=== PATIENT | female | born 1990 | race African-American/Black ===

== ENCOUNTER 2019-04-23 11:24 | Emergency (ER) | payer BC, SELFPAY ==
[2019-04-23 11:32] VITALS: BP 135/86; PULSE 106; TEMP 36.5; O2SAT 100
--- NOTE | 2019-04-23 11:40 | W.ED.GENAD ---
Discharge Plan Disposition Patient Disposition: HOME Condition: Good Discharge Details Chief Complaint: Urinary Clinical Impression: Vaginal discharge, Candidiasis of vagina, Bacterial vaginosis Primary Care Provider: None,None ED Provider: Abhi Pires Home Meds and New Rx's Prescriptions: New clotrimazole 2 % cream 1 appful VG QHS 3 Days Qty: 21 RF: 0 metronidazole [Flagyl] 500 mg tablet 500 mg PO BID 7 Days Qty: 14 RF: 0 Discharge Instructions Instructions: Vulvovaginal Candidiasis (ED) Additional Instructions: You have bacterial vaginosis and a yeast infection. Please take the Flagyl as directed. Do not take any alcohol with this. Please apply the cream to the vaginal region nightly for 3 nights. You will be contacted within 5 days if your gonorrhea and chlamydia come back positive. Otherwise if you receive no call were negative. You can always contact us if you would like the results at any time though. If you notice any worsening of your symptoms, or any new symptoms such as vomiting, diarrhea, fever, chills, shortness of breath, chest pain, numbness, weakness, or fainting , please return immediately to the emergency department for reevaluation. Please follow up with your primary care provider as soon as possible for reassessment and reevaluation. As always, it was a pleasure participating in your medical care today. Medical Decision Making This is a pleasant 28-year-old -[place] female who presents with vaginal discharge for the last 2 days. It is green in color, notably increased. She has associated dysuria. She denies flank tenderness or CVA tenderness, she denies fever chills. Exam demonstrates a nontender pelvic region, no chandelier sign, no clinical evidence of severe PID. She has notable cottage tease discharge which is clinically consistent with a yeast infection. Differential is clinically inconsistent with tubo-ovarian abscess. Pending vaginal past screens at this time. 12:47 PM Vaginal Pap screen shows no evidence of use confirmatory Hugo. We will give a dose of 150 mg fluconazole here. Patient does not want doxycycline or Rocephin or azithromycin at this time as she denies any sexual activity whatsoever and the likelihood for gonorrhea chlamydia is extremely low. We will respect this. This time will discharge home recommend close follow-up with her PCP. Discussed red flags which to return. Signs and symptoms are clinically consistent with vaginal candidiasis. I have extensively reviewed the treatment plan and discharge instructions with the patient. I have addressed all patient concerns at this time. The patient was made aware of what symptoms to monitor for that would warrant a return to the emergency department. Discussed the plan with the patient, they demonstrate verbal understanding and agreement with our assessment and plan at this time. Additionally her vaginal Pap screen did come up for bacterial vaginosis as well. We will give Flagyl here, as well as a prescription for home use. We discussed the importance of avoiding alcohol. HPI General Date/Time Provider Initiated Documentation: 04/23/19 11:31. HPI Narrative: This is a 28-year-old -[place] female with no significant past medical history who presents today for vaginal discharge and dysuria. Patient states that for the last 2 days she has had green vaginal discharge and burning when she urinates. She denies flank or CVA tenderness. She denies fever or chills. She denies any intercourse for greater than 9 months. She denies any sexual activity in the genital region by another person greater than 9 months. She denies any history of STDs in the past. She has no other complaints at this time. She did take 2 doses of Bactrim that she had leftover at home, but this did not change her symptoms. No other complaints at this time. No other modifying factors. Related Data Home Medications Medication Instructions Recorded Confirmed clotrimazole 1 appful VG QHS 3 Days #21 gm 04/23/19 metronidazole [Flagyl] 500 mg PO BID 7 Days #14 tab 04/23/19 Previous Rx's Medication Instructions Recorded clotrimazole 1 appful VG QHS 3 Days #21 gm 04/23/19 metronidazole [Flagyl] 500 mg PO BID 7 Days #14 tab 04/23/19 General Stated Complaint: Urinary REECE: 3 Review of Systems All systems reviewed & are unremarkable except as noted in HPI and below PFSH Social History Smoking/Tobacco Use Status: Current every day Tobacco Type: cigarettes Alcohol Intake: current Alcohol Intake frequency: a few times a week Drug use: Never Substance use type: does not use Do you feel safe at home: Yes Do you feel safe in your relationship?: Yes Exam Narrative Exam Narrative: 1.Const: Well-nourished, Well-developed, appearing stated age 2.Eyes: PERRL, no conjunctival injection, and symmetrical lids. 3.ENT: Atraumatic external nose and ears. Moist MM. Neck: Symmetric, trachea midline, No thyromegaly. 4.CVS: +S1/S2, No murmurs or gallops. Peripheral pulses 2+ and equal in all extremities. Brisk capillary refill in all extremities. 5.RESP: Unlabored respiratory effort. Clear to auscultation bilaterally. No wheezes rales or rhonchi 6.GI: Soft, Nontender/Nondistended, No hepatosplenomegaly. No guarding or rebound. Pelvic exam demonstrated no pelvic tenderness on palpation. No flank or CVA tenderness. Pelvic exam was performed with female nurse at bedside, negative chandelier sign, notable cottage cheeselike discharge that was green in color. No petechiae or erythema on the cervix. No cervical motion tenderness. Bimanual exam demonstrated no significant tenderness. 7.MSK: Normocephalic/Atraumatic, Extremities w/o deformity or ttp No cyanosis or clubbing, Normal movement of all extremities 8.Skin: Warm, Dry. No rashes or lesions. 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 Sensation grossly intact, no focal neurologic deficits. 10.Psych: (AAO) x3. Appropriate mood and affect Course Vital Signs Vital signs: Vital Signs Temperature 36.5 C 04/23/19 11:32 Pulse 106 H 04/23/19 11:32 Blood Pressure 135/86 04/23/19 11:32 Pulse Oximetry 100 04/23/19 11:32 Temperature 36.5 C 04/23/19 11:32 Pulse 106 H 04/23/19 11:32 Blood Pressure 135/86 04/23/19 11:32 Blood Pressure Position Sitting 04/23/19 11:32 Pulse Oximetry 100 04/23/19 11:32 Oxygen Delivery Method Room Air 04/23/19 11:32 Oxygen Flow Rate 0 04/23/19 11:32 Pain Level 0 04/23/19 11:32 Lab/Test Results Lab/Test Results: 04/23/19 11:39 Vaginal Vaginitis Screen - Pending
[2019-04-23 11:55] LABS: Bilirubin Negative (Negative); Blood Negative (Negative); Clarity Clear (Clear); Glucose Negative (Negative); Ketones Negative (Negative); Leukocyte Esterase Small (Negative); Nitrite Negative (Negative); Specific Gravity >= 1.030 (1.005-1.025); Urobilinogen 0.2 EU/dL (Up TO 0.2); pH 6.5 (5-8)
[2019-04-23 12:22] LABS: Bacteria Moderate HPF (Negative); C & S Indicated? No/Sq. Contamination; Casts Negative LPF (Negative); Crystals Negative HPF (Negative); Epithelial Cells Many HPF (Negative); Mucus Moderate (Negative)
[2019-04-23] MEDS: metroNIDAZOLE 500 MG TAB PO (13:23)
[2019-04-23] MEDS: Fluconazole 150 MG TAB PO (13:24)
[2019-04-23 13:25] VITALS: BP 132/78; PULSE 78; RESP 19; TEMP 37.2; O2SAT 99
[2019-04-24 15:15] LABS: Chlamydia Result Negative (Negative)
[2019-04-28 11:32] LABS: GC Result Negative (Negative)
== END 2019-04-23 14:16 | disposition home or self-care (01) ==
LOC: ER 12:50
PROVIDERS: Emergency Provider Student in an Organized Health Care Education/Training Program
DX: N76.0 Acute vaginitis (principal); B96.89 Other specified bacterial agents as the cause of diseases classified elsewhere; B37.3 Candidiasis of vulva and vagina; R30.0 Dysuria
CPT/HCPCS: 81025; 87491; 87591; 99284; 81003; 81015; 87480; 87510; 87660; 99283

== ENCOUNTER 2019-12-24 03:37 | Outpatient (CLI) | payer BC, SELFPAY ==
--- NOTE | 2020-01-03 22:01 | PDOC.EEG_ITS ---
Neurology EEG EEG: [facility] Department of Neurology EEG REPORT Date of Recordin12/24/19 Interpreting Physician: Dr. Leonora Kelsey PCP/Referring Provider: Dr. Sarah Huff Reason for study: Ms. Ellison is a 29 year-old woman with a remote history of seizure x2 with 1 year history of visual and auditory hallucinations. Current Medications: None reported. METHODS: A 21 channel digitized electroencephalogram was performed in the [facility] Clinical Neurophysiology Laboratory. The 10/20 international system of electrode placement was used and bipolar and referential electrode montages were recorded. In addition to EEG the patient was monitored for EKG and lateral/vertical eye movements. Activation procedures of photic stimulation and hyperventilation were performed if applicable. Video was used during activation procedures and during events where applicable. The duration of the recording was 30 minutes. DESCRIPTION OF EEG: The patient was noted to be awake, drowsy, and asleep during the recording. During maximal wakefulness a 10-Hz posterior background rhythm was present which was well-modulated, symmetrical, reactive to eye opening, and of moderate voltage. With eye opening the background activity changed to a low voltage mixture of alpha, beta, and occasional theta range frequencies. Faster frequencies were present in the bilateral anterior head regions. There was a normal anterior-posterior voltage gradient. During drowsiness, there was attenuation of the posterior dominant background rhythm and vertex waves. Stage II sleep was present with symmetrical sleep spindles, K-complexes, and vertex waves. There was a single right occipital (O2), high-amplitude, spike-wave at 15:56:14. There were rare right occipital sharp-waves that were not clearly epileptic. Activating Procedures: Photic stimulation was performed which produced no posterior driving response. Hyperventilation was performed with moderate effort and produced no physiological slowing of the background. EKG: EKG revealed normal sinus rhythm. 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 Clinical correlation is advised. Leonora Kelsey MD
== END 2019-12-24 03:57 ==
PROVIDERS: Visit Provider Psychiatry & Neurology Psychiatry
DX: G40.909 Epilepsy, unspecified, not intractable, without status epilepticus (principal)
CPT/HCPCS: 95819

== ENCOUNTER 2019-12-25 04:43 | Outpatient (CLI) | payer BC, SELFPAY ==
[2019-12-25 12:04] LABS: Abs Immature Grans 0.01 10^3/uL (0.0-0.06); Absolute Basophil Count 0.04 10^3/uL (0.0-0.2); Absolute Eosinophil Count 0.23 10^3/uL (0.0-0.7); Absolute Lymphocyte Count 2.17 10^3/uL (1.2-3.4); Absolute Monocyte Count 0.54 10^3/uL (0.1-0.8); Absolute Neutrophil Count 4.57 10^3/uL (1.2-6.7); Basophils % 0.5; HCT 39.3 % (36.0-46.0); HGB 13.1 g/dL (11.2-15.7); Immature Grans % 0.1; Lymphocytes % 28.7; MCH 28.9 pg (27.0-33.0); MCHC 33.3 % (32.0-36.0); MCV 86.8 fL (80-95); MPV 9.8 fL (8.0-11.0); Monocytes % 7.1; Neutrophils % 60.6; Nucleated RBC 0 %; Platelet Count 336 10^3/uL (130-400); RBC 4.53 10^6/uL (3.93-5.22); RDW-SD 38.4 fL; WBC 7.56 10^3/uL (4.4-10.8)
[2019-12-25 14:14] LABS: ALT 90 U/L (14-59); AST 32 U/L (15-37); Albumin 4.1 g/dL (3.4-5.0); Alkaline Phosphatase 75 U/L (46-116); Anion Gap 11.1 mmol/L (3-11); BUN 11 mg/dL (7-18); Bilirubin, Total 0.6 mg/dL (0.2-1.0); CO2 23.9 mmol/L (21.0-32.0); CREATININE 0.74 mg/dL (0.55-1.02); Calcium 9.2 mg/dL (8.5-10.1); Calculated LDL 93 mg/dL (<100); Chloride 105 mmol/L (98-107); Cholesterol 140 mg/dL (<200); Glucose 83 mg/dL (74-106); HDL Cholesterol 36 mg/dL (40-60); Potassium 4.3 mmol/L (3.5-5.1); Sodium 140 mmol/L (136-145); TSH (W/Ref FT4) 0.72 uIU/mL (0.36-3.74); Total Protein 7.4 g/dL (6.4-8.2); Triglyceride 59 mg/dL (<150)
[2019-12-28 06:16] LABS: Vitamin D 25 Total 22.1 ng/ml (30-100)
== END 2019-12-25 05:03 ==
PROVIDERS: Visit Provider Psychiatry & Neurology Psychiatry
DX: F31.30 Bipolar disorder, current episode depressed, mild or moderate severity, unspecified (principal); Z79.899 Other long term (current) drug therapy
CPT/HCPCS: 36415; 80053; 80061; 82306; 84443; 85025

== ENCOUNTER 2020-01-05 03:04 | Emergency (ER) | payer BC, SELFPAY ==
[2020-01-05 03:08] VITALS: BP 134/90; PULSE 90; RESP 16; TEMP 36.4; O2SAT 98
--- NOTE | 2020-01-05 03:14 | ED.GENADUL_ITS ---
Discharge Plan Disposition Patient Disposition: HOME Condition: Good Discharge Details Chief Complaint: Abd Prob Clinical Impression: Constipation Primary Care Provider: None,None ED Provider: Abhi Pires Home Meds and New Rx's Prescriptions: New docusate sodium [Colace] 100 mg capsule 100 mg PO DAILY Qty: 30 RF: 0 No Action amoxicillin 500 mg Tablet 500 mg PO TID RF: 0 acetaminophen-codeine 300-30 mg Tablet 1 tab PO Q6H PRNRF: 0 ibuprofen 600 mg Tablet 600 mg PO Q6H PRNRF: 0 Discharge Instructions Instructions: Constipation (ED) Additional Instructions: At this time we are able to get a notable amount of stool out with the enemas. Please drink plenty fluids at home, had recommend 10 to 12 cups of water per day, take an [id number] Colace every day while you are on the Tylenol with codeine. Tylenol with codeine can cause significant constipation. Eat a diet high in fiber. If you notice any worsening of your symptoms, or any new symptoms such as vomiting, diarrhea, fever, chills, shortness of breath, chest p ain, numbness, weakness, or fainting , please return immediately to the emergency department for reevaluation. Please follow up with your primary care provider as soon as possible for reassessment and reevaluation. As always, it was a pleasure participating in your medical care today. Medical Decision Making 29-year-old female who presents today for evaluation of constipation. The patient states that 5 to 6 days ago she started taking Tylenol with codeine for toothache, in conjunction with amoxicillin based antibiotic and Motrin. Since then she has not had any bowel movements or leaking. She feels like there is a rock that she is trying to poop out. She did try taking an [id number]-lwa-txvwjwe laxative today but that did not help. Aside for cramp she denies any focal pain. She denies any blood or other complaints. No history of neutropenia or immune deficiency. No history of cancer. Physical exam demonstrates hard stool ball. Will attempt to break up the ball, and give an enema. Had a notably large bowel movement and complete expectoration of all the blood from her rectum. She feels much better. Recommend sitz bath's, continued fluid and Colace. Discussed red flags which to return. Patient feels well and would like to go home. I have extensively reviewed the treatment plan and discharge instructions with the patient. I have addressed all patient concerns at this time. The patient was made aware of what symptoms to monitor for that would warrant a return to the emergency department. Discussed the plan with the p atient, they demonstrate verbal understanding and agreement with our assessment and plan at this time. HPI General Date/Time Provider Initiated Documentation: 01/05/20 03:06 . HPI Narrative: 29-year-old female who presents today for evaluation of constipation. The patient states that 5 to 6 days ago she started taking Tylenol with codeine for toothache, in conjunction with amoxicillin based antibiotic and Motrin. Since then she has not had any bowel movements or leaking. She feels like there is a rock that she is trying to poop out. She did try taking an rqpa-pkw-dpxmxco laxative today but that did not help. Aside for cramp she denies any focal pain. She denies any blood or other complaints. No history of neutropenia or immune deficiency. No history of cancer. Related Data Home Medications Medication Instructions Recorded Confirmed acetaminophen-codeine 1 tab PO Q6H PRN 01/05/20 01/05/20 amoxicillin 500 mg PO TID 01/05/20 01/05/20 docusate sodium [Colace] 100 mg PO DAILY #30 cap 01/05/20 ibuprofen 600 mg PO Q6H PRN 01/05/20 01/05/20 Previous Rx's Medication Instructions Recorded docusate sodium [Colace] 100 mg PO DAILY #30 cap 01/05/20 Allergies Allergy/AdvReac Type Severity Reaction Status Date / Time No Known Allergies Allergy Unverified 01/05/20 03:15 General Stated Complaint: Abd Prob REECE: 3 Review of Systems All systems reviewed & are unremarkable except as noted in HPI and below PFSH Social History Smoking/Tobacco Use Status: Current every day Tobacco Type: cigarettes Alcohol Intake: current Alcohol Intake frequency: a few times a week Drug use: Never Substance use type: does not use Do you feel safe at home: Yes Do you feel safe in your relationship?: Yes Exam Narrative Exam Narrative: 1.Const: Well-nourished, Well-developed, appearing stated age 2.Eyes: PERRL, no conjunctival injection, and symmetrical lids. 3.ENT: Atraumatic external nose and ears. Moist MM. Neck: Symmetric, trachea mid line, No thyromegaly. 4.CVS: +S1/S2, No murmurs or gallops. Peripheral pulses 2+ and equal in all extremities. Brisk capillary refill in all extremities. 5.RESP: Unlabored respiratory effort. Clear to auscultation bilaterally. No wheezes rales or rhonchi 6.GI: Soft, Nontender/Nondistended, No hepatosplenomegaly. No guarding or rebound. 7.MSK: Normocephalic/Atraumatic, Extremities w/o deformity or ttp No cyanosis or clubbing, Normal movement of all extremities. Full exam demonstrates firm stool ball. No evidence of anal or rectal laceration. 8.Skin: Warm, Dry. No rashes or lesions. 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 Sensation grossly intact, no focal neurologic deficits. 10.Psych: (AAO) x3. Appropriate mood and affect Course Vital Signs Vital signs: Vital Signs Temperature 36.4 C L 01/05/20 03:08 Pulse 90 01/05/20 03:08 Respiratory Rate 16 01/05/20 03:08 Blood Pressure 134/90 01/05/20 03:08 Pulse Oximetry 98 01/05/20 03:08 Temperature 36.4 C L 01/05/20 03:08 Temperature Source Skin 01/05/20 03:08 Pulse 90 01/05/20 03:08 Respiratory Rate 16 01/05/20 03:08 Blood Pressure 134/90 01/05/20 03:08 Blood Pressure Position Standing 01/05/20 03:08 Pulse Oximetry 98 01/05/20 03:08 Oxygen Delivery Method Room Air 01/05/20 03:08 Oxygen Flow Rate 0 01/05/20 03:08 Pain Level 7 01/05/20 03:08
--- NOTE | 2020-01-05 03:55 | NUR.NOTE ---
Nursing Note:Stevo was not able to hold the fleets in but only a couple min. After sitting on the commode for a prolonged time she was able to have an extremely large formed bowel movement.
--- NOTE | 2020-01-05 04:00 | NUR.NOTE ---
Large BM s/p enema.
== END 2020-01-05 04:00 | disposition home or self-care (01) ==
PROVIDERS: Emergency Provider Student in an Organized Health Care Education/Training Program
DX: K59.03 Drug induced constipation (principal); T40.2X5A Adverse effect of other opioids, initial encounter
CPT/HCPCS: 99283

== ENCOUNTER 2020-02-16 00:52 | Outpatient (CLI) | payer BC, SELFPAY ==
--- NOTE | 2020-02-16 | DI.MRI_ITS ---
EXAM: MR BRAIN WO CLINICAL HISTORY: SEIZURE,R56.9,ABNL ECG,R94.01,TRANSIENT ALTERATION,R40.4 TECHNIQUE: Multiplanar multisequence MRI of the brain was performed. COMPARISON: No exams were available for comparison FINDINGS: The ventricular system is normal in appearance. No signal abnormality identified in the brain. The orbital and temporal bone structures appear intact as does the pituitary. Diffusion weighted imaging shows no evidence of infarction. Susceptibility weighted imaging shows no evidence of intracranial hemorrhage. There is normal flow void in the [place] of [place] vasculature. Additional coronal T2 weighted imaging, high-resolution, of the temporal/hippocampal region shows no hippocampal abnormality to suggest the presence of mesial temporal sclerosis. IMPRESSION: Normal brain MRI DATA REPOSITORY:
== END 2020-02-16 01:12 ==
PROVIDERS: Visit Provider Psychiatry & Neurology Neurology
DX: R56.9 Unspecified convulsions (principal); R94.31 Abnormal electrocardiogram [ECG] [EKG]; R40.4 Transient alteration of awareness
CPT/HCPCS: 70551